=== PATIENT | male | born 2000 | race Caucasian/White ===

== ENCOUNTER 2024-05-05 12:26 | Emergency (ER) | payer SELFPAY ==
[2024-05-05] MEDS ORDERED: Ketorolac 0.5% Ophth Soln 5 ML Bottle EYELF SCH (15:15)
== END 2024-05-05 15:53 | disposition home or self-care (01) ==
LOC: FB.ED 12:26
DX: S05.02XA Injury of conjunctiva and corneal abrasion without foreign body, left eye, initial encounter (principal); X58.XXXA Exposure to other specified factors, initial encounter
CPT/HCPCS: 99283; A9270